=== PATIENT | female | born 1995 | race Caucasian/White ===

== ENCOUNTER 2020-02-01 09:19 | Outpatient (CLI) | payer BC, MEDICAID ==
[2020-02-01] VITALS (21 sets, daily range): BP systolic 95–120; BP diastolic 64–88
== END 2020-02-01 23:59 | disposition home or self-care (01) ==
LOC: CARD DIAG 09:19
PROVIDERS: ATTEND Internal Medicine Cardiovascular Disease
DX: R42 Dizziness and giddiness (principal)
CPT/HCPCS: 93660